=== PATIENT | male | born 1935 | race Caucasian/White ===

== ENCOUNTER → 2019-04-23 | Outpatient (CLI) | payer MEDICARE, OTHER ==
[~2019-04-23] MED LIST: ACET325 PO; AMLO5 PO; ASPI81CH PO; Allergy Medicat25 MG PO; Benadryl 50 mg50 MG PO; CHOL10002 PO; DIPH50 PO; EZET10; FAMO40 PO; HYDMETSO OP; LOSA25 PO; MULVITMIND PO; OMEP20ER PO; Omeprazole20 M1; PRAV10 PO; PRAV20 PO; STOOL SOFTENER50 MG PO; VITAMIN B122500 MC1 PO
[2019-04-26 13:07] LABS: M-SPIKE, % Not Observed % (Not Observed); PROTEIN,TOTAL,URINE 4.5 mg/dL (Not Estab.)
== END | disposition home or self-care (01) ==
LOC: LAB SHORT 08:19 → OLS 08:19 → LAB FUT 04-20 16:05
PROVIDERS: Internal Medicine
DX: R78.9 Finding of unspecified substance, not normally found in blood (principal)
CPT/HCPCS: 81050; 84156; 84166

== ENCOUNTER → 2020-03-12 | Outpatient (CLI) | payer MEDICARE, OTHER | LOC: PLD 11:18 → LAB SHORT 11:18 | DX: D48.5 Neoplasm of uncertain behavior of skin (principal) | CPT/HCPCS: 88305 ==

== ENCOUNTER → 2020-12-11 | Outpatient (CLI) | payer MEDICARE, OTHER | END | disposition home or self-care (01) | LOC: LAB SHORT 08:09 → LAB 08:09 | DX: D48.5 Neoplasm of uncertain behavior of skin (principal) | CPT/HCPCS: 88305 ==